=== PATIENT | female | born 1980 | race Caucasian/White ===

== ENCOUNTER 2018-05-07 08:35 | Outpatient (CLI) | payer OTHER ==
[2018-05-07 09:02] LABS: #Basophils 0.1 thou/uL (0.0-0.2); #Eosinphils 0.1 thou/uL (0.0-0.7); #Lymphocytes 2.5 thou/uL (1.20-3.40); #Monocytes 0.7 thou/uL (0.11-0.59); #Neutrophils 4.1 thou/uL (1.40-6.50); %Basophils 1.2 % (0.0-1.0); %Eosinophils 1.3 % (0.0-10.0); %Lymphocytes 33.6 % (21.0-51.0); %Neutrophils 54.9 % (42.0-75.0); Hemoglobin 13.8 g/dL (12.0-16.0); Mean Corpuscular HGB CONC 32.5 g/dL (32.0-36.0); Mean Corpuscular Hemoglobin 28.3 pg (27.0-31.0); Mean Corpuscular Volume 87.1 fL (78.0-98.0); Mean Platelet Volume 8.8 fL (7.4-10.4); Platelet Count 304 thou/uL (130-400); RBC Distribution Width 11.1 % (11.5-14.5); Red Blood Cell (RBC) Count 4.88 mill/uL (4.20-5.40); White Blood Cell (WBC) Count 7.4 thou/uL (4.8-10.8)
[2018-05-07 09:24] LABS: ALT (SGPT) 30 U/L (8-55); AST (SGOT) 17 U/L (5-34); Albumin 4.6 g/dL (3.5-5.0); Alkaline Phosphatase 77 U/L (40-150); Anion Gap 14 mmol/L (10-20); BUN (Urea Nitrogen) 7 mg/dL (7.0-18.7); Bilirubin, Total 0.2 mg/dL (0.2-1.2); Calc. Creatinine Clearance 0 mL/min (70-130); Carbon Dioxide 27 mmol/L (22-29); Chloride 101 mmol/L (98-107); Estimated GFR-MDRD 84; Globulin 3.9 g/dL (2.4-3.5); Glucose 92 mg/dL (70-105); Potassium 3.2 mmol/L (3.5-5.1); Protein, Total 8.5 g/dL (6.0-8.3); Sodium 139 mmol/L (136-145)
--- NOTE | 2018-05-07 09:43 | RAD ---
PA AND LATERAL CHEST: Indication: Chest pain with shortness of breath. FINDINGS: The lungs are clear. Cardiomediastinal silhouette is within normal limits. No pleural effusion or pne umothorax is evident. No acute osseous abnormality is noted. IMPRESSION: No acute cardiopulmonary abnormality. POS: [facility]
== END 2018-05-07 08:36 | disposition home or self-care (01) ==
LOC: SCSRAD 08:35
PROVIDERS: ATTEND Family Medicine
DX: R07.9 Chest pain, unspecified (principal); I26.99 Other pulmonary embolism without acute cor pulmonale
CPT/HCPCS: 36415; 71046; 80053; 84443; 85025; 85379

== ENCOUNTER 2018-05-07 09:32 | Emergency (ER) | payer OTHER ==
[~2018-05-07 09:32] MED LIST: Iopamidol 370 76% 100 ML VIAL ONE
--- NOTE | 2018-05-07 10:43 | CT ---
CTA OF THE THORAX UTILIZING IV CONTRAST AND 3D REFORMATTED IMAGING: Date: 05/07/18 INDICATION: Concern for pulmonary embolus. COMPARISON: None. FINDINGS: There is a large fluid and gas collection within the outer aspect of the left breast (4.6 x 5.4 cm), which may be postoperative in nature. There is some mildly prominent left axillary lymph nodes, one of the largest is measuring 8.4 mm on i mage 32 of series 6. There are some subpectoral lymph nodes measuring up to 1.0 cm on image 29 of ser ies 6. There is reticulation within fat of the superior aspect of the left axillary fossa which may b e postsurgical in nature related to an axillary node dissection. No central or segmental pulmonary embolus is evident. No pathologically enlarged lymph nodes are seen within the mediastinum, hilar, or right axillary region. No pleural effusion or pneumothorax is evid ent. No acute abnormality is seen within the upper abdomen. No acute osseous abnormality is demonstra cr. IMPRESSION: 1. No central or segmental pulmonary embolus demonstrated. 2. Large fluid and gas collection seen within the outer aspect of the left breast, which may be post operative in nature or reflective of a hematoma. Operative site abscess cannot be entirely excluded. Recommend correlation with clinical examination and patient's surgical history. 3. Reticulation involving the fat of the superior aspect of the left axillary fossa is suspicious fo r postsurgical change related to dissection. 4. Enlarged lymph nodes within the left axillary and left subpectoral region may be reactive n natur e. Continued follow-up is recommended. POS: [facility]
[2018-05-07] MEDS ORDERED: Potassium Chloride 20 MEQ TAB ONE (10:45)
== END 2018-05-07 11:03 | disposition home or self-care (01) ==
LOC: SCSER 09:32
DX: F41.9 Anxiety disorder, unspecified (principal); R00.0 Tachycardia, unspecified; E87.6 Hypokalemia; R06.00 Dyspnea, unspecified
CPT/HCPCS: 71275; 93005

== ENCOUNTER 2018-05-12 08:32 | Outpatient (CLI) | payer OTHER, SELFPAY ==
--- NOTE | 2018-05-12 11:52 | CT ---
CONTRAST ENHANCED CT OF THE CHEST CONTRAST ENHANCED CT OF THE ABDOMEN AND PELVIS: History: Malignant neoplasm of upper outer quadrant left female breast. C50.42 Technique: Contrast enhanced CT images of the chest, abdomen, and pelvis obtained. FINDINGS: Images demonstrate the lung parenchyma to be unremarkable. No definite evidence of pulmonary parenchy mal lesion is seen. Mediastinum is unremarkable. Surgical changes are seen in the lateral aspect of the left breast. There does appear to be a mildly enlarged left axillary lymph node, diameter measuring approximately 12 x 8 x 12 mm. No evidence of pleural or pericardial effusions seen. CT images of the abdomen and pelvis demonstrate the liver, spleen, gallbladder, pancreas, adrenal gla nds, and kidneys to be unremarkable. No dilated loops of bowel seen. The colon is unremarkable no definite masses or lesions seen. No significant evidence of osseous lesions seen. No evidence of periaortic lymphadenopathy seen. No evidence of pelvic lymphadenopathy or mass lesions seen. IMPRESSION: Mildly enlarged left axillary lymph node. POS: [facility]
[2018-05-12] MEDS ORDERED: Iopamidol 370 76% 100 ML VIAL ONE (13:29)
--- NOTE | 2018-05-12 15:12 | NM ---
NUCLEAR MEDICINE BONE SCAN: HISTORY: Malignant neoplasm of the upper outer quadrant left breast. COMPARISON: None. TECHNIQUE: The patient was administered 32 mCi of Technetium 99m-MDP intravenously. Whole body imaging is perfo rmed after appropriate delay. FINDINGS: Physiologic distribution of radiotracer. Uptake in both knees and shoulders as well as wrists and santiago nds due to degenerative change. There is no evidence of osseous metastasis in the axial skeleton or in the ribs. No evidence of mestasis in the pelvis. A small amount of urinary contamination is note d in the midline of the pelvis. A small amount of urinary contamination is noted in the midline of t he pelvis. IMPRESSION: No scintigraphic evidence of osseous metastasis. POS: [facility]
== END 2018-05-12 08:33 | disposition home or self-care (01) ==
LOC: CT 08:32
PROVIDERS: ATTEND Internal Medicine Hematology & Oncology
DX: C50.412 Malignant neoplasm of upper-outer quadrant of left female breast (principal); R59.0 Localized enlarged lymph nodes
CPT/HCPCS: 71260; 74177; 78306; A9503

== ENCOUNTER 2018-05-15 12:35 | Outpatient (CLI) | payer OTHER | END 2018-05-15 12:36 | disposition home or self-care (01) | LOC: ULT 12:35 | PROVIDERS: ATTEND Internal Medicine Hematology & Oncology | DX: Z51.11 Encounter for antineoplastic chemotherapy (principal); C50.412 Malignant neoplasm of upper-outer quadrant of left female breast | CPT/HCPCS: 93306 ==

== ENCOUNTER 2018-05-23 13:38 | Day surgery (SDC) | payer OTHER ==
[2018-05-23] MEDS ORDERED: Sodium Chloride 0.9% 20 ML ONE (13:44)
[2018-05-23] MEDS ORDERED: DOXORUBICIN 100 MG in Sodium Chloride 0.9% 50 ML IVPB SCH (14:00)
[2018-05-23] MEDS ORDERED: Pegfilgrastim Onpro 6 MG/0.6 ML SQ SCH (14:15)
[2018-05-23] MEDS ORDERED: SODIUM CHLORIDE 0.9% IVPB SCH (14:15)
[2018-05-23] MEDS ORDERED: Palonosetron HCl 0.25 MG in Sodium Chloride 0.9% 50 ML IVPB SCH (14:15)
[2018-05-23] MEDS ORDERED: CYCLOPHOSPHAMIDE IVPB SCH (14:15)
[2018-05-23] MEDS ORDERED: Dexamethasone 10 MG in Sodium Chloride 0.9% 50 ML IVPB SCH (14:15)
[2018-05-23 17:12] VITALS: BP 144/79; TEMP 98.5
== END 2018-05-23 18:36 | disposition home or self-care (01) ==
LOC: ONC/OP 13:38
PROVIDERS: ATTEND Internal Medicine Hematology & Oncology
DX: Z51.11 Encounter for antineoplastic chemotherapy (principal); C50.412 Malignant neoplasm of upper-outer quadrant of left female breast
CPT/HCPCS: 96367; 96375; 96377; 96413; 96417; J1100; J1453; J1642; J2469; J2505; J7050; J9000; J9070

== ENCOUNTER 2018-06-10 10:22 | Day surgery (SDC) | payer OTHER ==
[2018-06-10 10:47] VITALS: BP 136/82; TEMP 98.5
[2018-06-10] MEDS ORDERED: SODIUM CHLORIDE 0.9% IVPB SCH (11:00)
[2018-06-10] MEDS ORDERED: Pegfilgrastim Onpro 6 MG/0.6 ML SQ SCH (11:00)
[2018-06-10] MEDS ORDERED: CYCLOPHOSPHAMIDE IVPB SCH (11:00)
[2018-06-10] MEDS ORDERED: DOXORUBICIN 100 MG in Sodium Chloride 0.9% 50 ML IVPB SCH (11:00)
[2018-06-10] MEDS ORDERED: Dexamethasone 4 mg/ml Vial SLOW IVP SCH (11:15)
[2018-06-10] MEDS ORDERED: PALONOSETRON HCL 0.05 MG/ML 5 ML VIAL IVP SCH (11:15)
[2018-06-10] MEDS ORDERED: Sodium Chloride 0.9% 40 ML ONE (11:49)
== END 2018-06-10 14:52 | disposition home or self-care (01) ==
LOC: ONC/OP 10:22
PROVIDERS: ATTEND Internal Medicine Hematology & Oncology
DX: Z51.11 Encounter for antineoplastic chemotherapy (principal); C50.412 Malignant neoplasm of upper-outer quadrant of left female breast
CPT/HCPCS: 96367; 96375; 96377; 96413; 96417; J1100; J1453; J1642; J2469; J2505; J7050; J9000; J9070

== ENCOUNTER 2018-06-24 10:40 | Day surgery (SDC) | payer OTHER ==
[2018-06-24] MEDS ORDERED: Palonosetron HCl 0.25 MG in Sodium Chloride 0.9% 50 ML IVPB SCH (11:30)
[2018-06-24] MEDS ORDERED: Dexamethasone 10 MG in Sodium Chloride 0.9% 50 ML IVPB SCH (11:30)
[2018-06-24] MEDS ORDERED: Sodium Chloride 0.9% 30 ML ONE (11:46)
[2018-06-24] MEDS ORDERED: SODIUM CHLORIDE 0.9% IVPB SCH (12:00)
[2018-06-24] MEDS ORDERED: Pegfilgrastim Onpro 6 MG/0.6 ML SQ SCH (12:00)
[2018-06-24] MEDS ORDERED: DOXORUBICIN 100 MG in Sodium Chloride 0.9% 50 ML IVPB SCH (12:00)
[2018-06-24] MEDS ORDERED: CYCLOPHOSPHAMIDE IVPB SCH (12:00)
[2018-06-24 12:41] VITALS: BP 124/69; TEMP 97.7
== END 2018-06-24 15:58 | disposition home or self-care (01) ==
LOC: ONC/OP 10:40
PROVIDERS: ATTEND Internal Medicine Hematology & Oncology
DX: Z51.11 Encounter for antineoplastic chemotherapy (principal); C50.412 Malignant neoplasm of upper-outer quadrant of left female breast; D64.9 Anemia, unspecified; Z79.899 Other long term (current) drug therapy
CPT/HCPCS: 96375; 96377; 96413; 96417; J1100; J1453; J1642; J2469; J2505; J7050; J9000; J9070

== ENCOUNTER 2018-07-08 10:57 | Day surgery (SDC) | payer OTHER ==
[2018-07-08] MEDS ORDERED: Sodium Chloride 0.9% 40 ML ONE (11:10)
[2018-07-08] MEDS ORDERED: PALONOSETRON HCL 0.05 MG/ML 5 ML VIAL IVP SCH (11:15)
[2018-07-08] MEDS ORDERED: Dexamethasone 10 MG/ML VIAL SLOW IVP SCH (11:15)
[2018-07-08] MEDS ORDERED: SODIUM CHLORIDE 0.9% IVPB SCH (11:15)
[2018-07-08] MEDS ORDERED: DOXORUBICIN 100 MG in Sodium Chloride 0.9% 50 ML IVPB SCH (11:15)
[2018-07-08] MEDS ORDERED: Pegfilgrastim Onpro 6 MG/0.6 ML SQ SCH (11:15)
[2018-07-08] MEDS ORDERED: CYCLOPHOSPHAMIDE IVPB SCH (11:15)
== END 2018-07-08 15:22 | disposition home or self-care (01) ==
LOC: ONC/OP 10:57
PROVIDERS: ATTEND Internal Medicine Hematology & Oncology
DX: Z51.11 Encounter for antineoplastic chemotherapy (principal); C50.412 Malignant neoplasm of upper-outer quadrant of left female breast
CPT/HCPCS: 96367; 96375; 96377; 96413; 96417; J1100; J1453; J1642; J2469; J2505; J7050; J9000; J9070

== ENCOUNTER 2018-07-29 11:56 | Day surgery (SDC) | payer SELFPAY ==
[2018-07-29] MEDS ORDERED: Ondansetron HCl/PF 10 MG, Dexamethasone 10 MG in Sodium Chloride 0.9% 50 ML IVPB SCH (12:30)
[2018-07-29] MEDS ORDERED: PACLITAXEL IVPB SCH (13:00)
[2018-07-29] MEDS ORDERED: SODIUM CHLORIDE 0.9% IVPB SCH (13:00)
[2018-07-29 13:13] VITALS: BP 149/72; TEMP 98.6
[2018-07-29] MEDS ORDERED: Sodium Chloride 0.9% 40 ML ONE (14:42)
== END 2018-07-29 15:51 | disposition home or self-care (01) ==
LOC: ONC/OP 11:56
PROVIDERS: ATTEND Internal Medicine Hematology & Oncology
DX: Z51.11 Encounter for antineoplastic chemotherapy (principal); C50.412 Malignant neoplasm of upper-outer quadrant of left female breast
CPT/HCPCS: 96375; 96413; J1100; J1642; J2405; J7050; J9267

== ENCOUNTER 2018-08-05 11:18 | Day surgery (SDC) | payer SELFPAY ==
[2018-08-05] MEDS ORDERED: Sodium Chloride 0.9% 30 ML ONE (12:44)
[2018-08-05] MEDS ORDERED: Ondansetron PF 4 MG/2 ML Vial SLOW IVP SCH (13:15)
[2018-08-05] MEDS ORDERED: Dexamethasone 10 MG/ML VIAL SLOW IVP SCH (13:15)
[2018-08-05] MEDS ORDERED: SODIUM CHLORIDE 0.9% IVPB SCH (13:30)
[2018-08-05] MEDS ORDERED: PACLITAXEL IVPB SCH (13:30)
[2018-08-05 13:33] VITALS: BP 136/92; TEMP 98.7
== END 2018-08-05 14:54 | disposition home or self-care (01) ==
LOC: ONC/OP 11:18
PROVIDERS: ATTEND Internal Medicine Hematology & Oncology
DX: Z51.11 Encounter for antineoplastic chemotherapy (principal); C50.412 Malignant neoplasm of upper-outer quadrant of left female breast
CPT/HCPCS: 96375; 96413; J1100; J1642; J2405; J7050; J9267

== ENCOUNTER 2018-08-12 10:17 | Day surgery (SDC) | payer SELFPAY ==
[2018-08-12] MEDS ORDERED: SODIUM CHLORIDE 0.9% IVPB SCH (10:45)
[2018-08-12] MEDS ORDERED: Ondansetron PF 4 MG/2 ML Vial SLOW IVP SCH (10:45)
[2018-08-12] MEDS ORDERED: PACLITAXEL IVPB SCH (10:45)
[2018-08-12] MEDS ORDERED: Dexamethasone 10 MG/ML VIAL SLOW IVP SCH (10:45)
[2018-08-12 11:03] VITALS: BP 120/73; TEMP 98.2
[2018-08-12] MEDS ORDERED: Sodium Chloride 0.9% 30 ML ONE (11:36)
== END 2018-08-12 14:08 | disposition home or self-care (01) ==
LOC: ONC/OP 10:17
PROVIDERS: ATTEND Internal Medicine Hematology & Oncology
DX: Z51.11 Encounter for antineoplastic chemotherapy (principal); C50.412 Malignant neoplasm of upper-outer quadrant of left female breast
CPT/HCPCS: 96375; 96413; J1100; J1642; J2405; J7050; J9267

== ENCOUNTER 2018-08-19 10:33 | Day surgery (SDC) | payer MEDICAID, SELFPAY ==
[2018-08-19] MEDS ORDERED: Sodium Chloride 0.9% 20 ML ONE (10:42)
[2018-08-19] MEDS ORDERED: SODIUM CHLORIDE 0.9% IVPB SCH (10:45)
[2018-08-19] MEDS ORDERED: PACLITAXEL IVPB SCH (10:45)
[2018-08-19] MEDS ORDERED: Ondansetron PF 4 MG/2 ML Vial SLOW IVP SCH (10:45)
[2018-08-19] MEDS ORDERED: Dexamethasone 4 mg/ml Vial SLOW IVP SCH (10:45)
[2018-08-19 13:01] VITALS: BP 123/74; TEMP 98
== END 2018-08-19 18:34 | disposition home or self-care (01) ==
LOC: ONC/OP 10:33
PROVIDERS: ATTEND Internal Medicine Hematology & Oncology
DX: Z51.11 Encounter for antineoplastic chemotherapy (principal); C50.412 Malignant neoplasm of upper-outer quadrant of left female breast; C77.3 Secondary and unspecified malignant neoplasm of axilla and upper limb lymph nodes; Z17.0 Estrogen receptor positive status [ER+]
CPT/HCPCS: 96375; 96413; J1100; J1642; J2405; J7050; J9267

== ENCOUNTER 2018-08-26 11:43 | Day surgery (SDC) | payer MEDICAID ==
[2018-08-26] MEDS ORDERED: Sodium Chloride 0.9% 30 ML ONE (12:00)
[2018-08-26] MEDS ORDERED: Ondansetron PF 4 MG/2 ML Vial SLOW IVP SCH (12:15)
[2018-08-26] MEDS ORDERED: PACLITAXEL IVPB SCH (12:15)
[2018-08-26] MEDS ORDERED: SODIUM CHLORIDE 0.9% IVPB SCH (12:15)
[2018-08-26] MEDS ORDERED: Dexamethasone 4 mg/ml Vial SLOW IVP SCH (12:15)
== END 2018-08-26 13:56 | disposition home or self-care (01) ==
LOC: ONC/OP 11:43
PROVIDERS: ATTEND Internal Medicine Hematology & Oncology
DX: Z51.11 Encounter for antineoplastic chemotherapy (principal); C50.412 Malignant neoplasm of upper-outer quadrant of left female breast; Z79.899 Other long term (current) drug therapy
CPT/HCPCS: 36415; 80053; 82248; 83615; 84100; 84550; 96375; 96413; J1100; J2405; J7050; J9267

== ENCOUNTER 2018-09-02 09:54 | Day surgery (SDC) | payer MEDICAID ==
[~2018-09-02 09:54] MED LIST changes: +Dexamethasone 4 mg/ml Vial SLOW IVP SCH; +Dexamethasone Sod Phosphate 4 MG, Ondansetron 2MG/ML MDV 10 MG in Sodium Chloride 0.9% ... IVPB SCH; -Iopamidol 370 76% 100 ML VIAL ONE; +Ondansetron PF 4 MG/2 ML Vial SLOW IVP SCH; +PACLITAXEL IVPB SCH; +SODIUM CHLORIDE 0.9% IVPB SCH
[2018-09-02] MEDS ORDERED: Sodium Chloride 0.9% 20 ML ONE (10:02)
[2018-09-02 10:56] VITALS: BP 119/70; TEMP 98.5
== END 2018-09-02 12:35 | disposition home or self-care (01) ==
LOC: ONC/OP 09:54
PROVIDERS: ATTEND Internal Medicine Hematology & Oncology
DX: Z51.11 Encounter for antineoplastic chemotherapy (principal); C50.412 Malignant neoplasm of upper-outer quadrant of left female breast; Z98.890 Other specified postprocedural states
CPT/HCPCS: 96375; 96413; J1100; J1642; J2405; J7050; J9267

== ENCOUNTER 2018-09-09 00:03 | Day surgery (SDC) | payer MEDICAID ==
[2018-09-09] MEDS ORDERED: PACLITAXEL IVPB SCH (03:30)
[2018-09-09] MEDS ORDERED: SODIUM CHLORIDE 0.9% IVPB SCH (03:30)
[2018-09-09] MEDS ORDERED: Ondansetron PF 4 MG/2 ML Vial SLOW IVP SCH (03:30)
[2018-09-09] MEDS ORDERED: Dexamethasone 4 mg/ml Vial SLOW IVP SCH (03:30)
[2018-09-09] MEDS ORDERED: Sodium Chloride 0.9% 20 ML ONE (10:52)
== END 2018-09-09 12:42 | disposition home or self-care (01) ==
LOC: ONC/OP 00:03
PROVIDERS: ATTEND Internal Medicine Hematology & Oncology
DX: Z51.11 Encounter for antineoplastic chemotherapy (principal); C50.412 Malignant neoplasm of upper-outer quadrant of left female breast; Z98.890 Other specified postprocedural states
CPT/HCPCS: 96375; 96413; J1100; J1642; J2405; J7050; J9267

== ENCOUNTER 2018-09-16 10:31 | Day surgery (SDC) | payer MEDICAID ==
[~2018-09-16 10:31] MED LIST changes: +DEXAMETHASONE SOD PHOSPHATE IVP SCH; +Dexamethasone 4 MG in Sodium Chloride 0.9% 50 ML IVPB SCH; -Dexamethasone 4 mg/ml Vial SLOW IVP SCH; -Dexamethasone Sod Phosphate 4 MG, Ondansetron 2MG/ML MDV 10 MG in Sodium Chloride 0.9% ... IVPB SCH; +ONDANSETRON IVP SCH; +Ondansetron 2MG/ML MDV 10 MG in Sodium Chloride 0.9% 50 ML IVP SCH; -Ondansetron PF 4 MG/2 ML Vial SLOW IVP SCH; +[UNRECOGNIZED DRUG - OTHER] IVP SCH
[2018-09-16] MEDS ORDERED: Sodium Chloride 0.9% 20 ML ONE (10:34)
[2018-09-16 11:05] VITALS: BP 105/66; TEMP 98.8
== END 2018-09-16 13:06 | disposition home or self-care (01) ==
LOC: ONC/OP 10:31
PROVIDERS: ATTEND Internal Medicine Hematology & Oncology
DX: Z51.11 Encounter for antineoplastic chemotherapy (principal); C50.412 Malignant neoplasm of upper-outer quadrant of left female breast; C77.3 Secondary and unspecified malignant neoplasm of axilla and upper limb lymph nodes; Z17.0 Estrogen receptor positive status [ER+]; Z79.82 Long term (current) use of aspirin; Z98.890 Other specified postprocedural states; Z79.899 Other long term (current) drug therapy; Z79.810 Long term (current) use of selective estrogen receptor modulators (SERMs)
CPT/HCPCS: 96375; 96413; J1100; J1642; J2405; J7050; J9267

== ENCOUNTER 2018-09-23 11:42 | Day surgery (SDC) | payer OTHER ==
[~2018-09-23 11:42] MED LIST changes: -Ondansetron 2MG/ML MDV 10 MG in Sodium Chloride 0.9% 50 ML IVP SCH
[2018-09-23] MEDS ORDERED: Sodium Chloride 0.9% 20 ML ONE (12:20)
== END 2018-09-23 13:55 | disposition home or self-care (01) ==
LOC: ONC/OP 11:42
PROVIDERS: ATTEND Internal Medicine Hematology & Oncology
DX: Z51.11 Encounter for antineoplastic chemotherapy (principal); C50.412 Malignant neoplasm of upper-outer quadrant of left female breast; C77.3 Secondary and unspecified malignant neoplasm of axilla and upper limb lymph nodes; Z17.0 Estrogen receptor positive status [ER+]
CPT/HCPCS: 36415; 80053; 82248; 83615; 84100; 84550; 96375; 96413; J1100; J1642; J2405; J7050; J9267

== ENCOUNTER 2018-09-30 10:30 | Day surgery (SDC) | payer OTHER ==
[~2018-09-30 10:30] MED LIST changes: -DEXAMETHASONE SOD PHOSPHATE IVP SCH; -ONDANSETRON IVP SCH; +Ondansetron 2MG/ML MDV 10 MG in Sodium Chloride 0.9% 50 ML IVP SCH; +Ondansetron 2MG/ML MDV 10 MG, Dexamethasone 4 MG in Sodium Chloride 0.9% 50 ML IVP SCH; -[UNRECOGNIZED DRUG - OTHER] IVP SCH
[2018-09-30] MEDS ORDERED: Sodium Chloride 0.9% 30 ML ONE (10:36)
[2018-09-30 11:02] VITALS: BP 127/67; TEMP 98.4
== END 2018-09-30 12:43 | disposition home or self-care (01) ==
LOC: ONC/OP 10:30
PROVIDERS: ATTEND Internal Medicine Hematology & Oncology
DX: Z51.11 Encounter for antineoplastic chemotherapy (principal); C50.412 Malignant neoplasm of upper-outer quadrant of left female breast; Z17.0 Estrogen receptor positive status [ER+]
CPT/HCPCS: 96375; 96413; J1100; J1642; J2405; J7050; J9267

== ENCOUNTER 2018-10-07 10:09 | Day surgery (SDC) | payer OTHER ==
[~2018-10-07 10:09] MED LIST changes: -Dexamethasone 4 MG in Sodium Chloride 0.9% 50 ML IVPB SCH; -Ondansetron 2MG/ML MDV 10 MG in Sodium Chloride 0.9% 50 ML IVP SCH
[2018-10-07] MEDS ORDERED: Sodium Chloride 0.9% 30 ML ONE (10:40)
== END 2018-10-07 12:00 | disposition home or self-care (01) ==
LOC: ONC/OP 10:09
PROVIDERS: ATTEND Internal Medicine Hematology & Oncology
DX: Z51.11 Encounter for antineoplastic chemotherapy (principal); C50.412 Malignant neoplasm of upper-outer quadrant of left female breast; Z98.890 Other specified postprocedural states
CPT/HCPCS: 96375; 96413; J1100; J1642; J2405; J7050; J9267

== ENCOUNTER 2018-10-14 10:51 | Day surgery (SDC) | payer OTHER ==
[~2018-10-14 10:51] MED LIST changes: -Ondansetron 2MG/ML MDV 10 MG, Dexamethasone 4 MG in Sodium Chloride 0.9% 50 ML IVP SCH; +Ondansetron 2MG/ML MDV 10 MG, Dexamethasone 4 MG in Sodium Chloride 0.9% 50 ML IVPB SCH
[2018-10-14 13:06] VITALS: BP 132/80; TEMP 98.5
[2018-10-14] MEDS ORDERED: Sodium Chloride 0.9% 20 ML ONE (13:25)
== END 2018-10-14 14:54 | disposition home or self-care (01) ==
LOC: ONC/OP 10:51
PROVIDERS: ATTEND Internal Medicine Hematology & Oncology
DX: Z51.11 Encounter for antineoplastic chemotherapy (principal); C50.412 Malignant neoplasm of upper-outer quadrant of left female breast
CPT/HCPCS: 36415; 85025; 96375; 96413; J1100; J1642; J2405; J7050; J9267

== ENCOUNTER 2018-12-10 10:59 | Day surgery (SDC) | payer OTHER ==
[~2018-12-10 10:59] MED LIST changes: +Goserelin Acetate 3.6 MG KIT SC SCH; -Ondansetron 2MG/ML MDV 10 MG, Dexamethasone 4 MG in Sodium Chloride 0.9% 50 ML IVPB SCH; -PACLITAXEL IVPB SCH; -SODIUM CHLORIDE 0.9% IVPB SCH
[2018-12-10 12:11] VITALS: BP 137/78; TEMP 98.4
== END 2018-12-10 12:11 | disposition home or self-care (01) ==
LOC: ONC/OP 10:59
PROVIDERS: ATTEND Internal Medicine Hematology & Oncology
DX: Z51.11 Encounter for antineoplastic chemotherapy (principal); C50.412 Malignant neoplasm of upper-outer quadrant of left female breast; Z17.0 Estrogen receptor positive status [ER+]
CPT/HCPCS: 96402; J9202

== ENCOUNTER 2019-01-08 13:01 | Day surgery (SDC) | payer MEDICAID ==
[2019-01-08 13:07] VITALS: BP 134/88; TEMP 98
[2019-01-08] MEDS ORDERED: Goserelin Acetate 3.6 MG KIT SC SCH (13:15)
== END 2019-01-08 13:16 | disposition home or self-care (01) ==
LOC: ONC/OP 13:01
PROVIDERS: ATTEND Internal Medicine Hematology & Oncology
DX: Z51.11 Encounter for antineoplastic chemotherapy (principal); C50.412 Malignant neoplasm of upper-outer quadrant of left female breast; Z17.0 Estrogen receptor positive status [ER+]
CPT/HCPCS: 77412; 77417; 96402; J9202

== ENCOUNTER 2019-02-04 11:44 | Day surgery (SDC) | payer OTHER ==
[2019-02-04] MEDS ORDERED: Goserelin Acetate 3.6 MG KIT SC SCH (12:45)
== END 2019-02-04 15:50 | disposition home or self-care (01) ==
LOC: ONC/OP 11:44
PROVIDERS: ATTEND Internal Medicine Hematology & Oncology
DX: Z51.11 Encounter for antineoplastic chemotherapy (principal); C50.412 Malignant neoplasm of upper-outer quadrant of left female breast
CPT/HCPCS: 96402; J9202

== ENCOUNTER 2019-03-05 12:29 | Day surgery (SDC) | payer OTHER | END 2019-03-05 13:37 | disposition home or self-care (01) | LOC: ONC/OP 12:29 | PROVIDERS: ATTEND Internal Medicine Hematology & Oncology | DX: Z51.11 Encounter for antineoplastic chemotherapy (principal); C50.412 Malignant neoplasm of upper-outer quadrant of left female breast | CPT/HCPCS: 36415; 80053; 82306; 84443; 96401; J9202 ==

== ENCOUNTER 2019-04-02 10:59 | Day surgery (SDC) | payer OTHER ==
[2019-04-02 11:24] VITALS: BP 141/84; TEMP 98.2
== END 2019-04-02 11:28 | disposition home or self-care (01) ==
LOC: ONC/OP 10:59
PROVIDERS: ATTEND Internal Medicine Hematology & Oncology
DX: Z51.11 Encounter for antineoplastic chemotherapy (principal); C50.412 Malignant neoplasm of upper-outer quadrant of left female breast
CPT/HCPCS: 96402; J9202

== ENCOUNTER 2019-04-30 11:06 | Day surgery (SDC) | payer OTHER ==
[2019-04-30 11:25] VITALS: BP 131/70; TEMP 97.8
== END 2019-04-30 11:27 | disposition home or self-care (01) ==
LOC: ONC/OP 11:06
PROVIDERS: ATTEND Internal Medicine Hematology & Oncology
DX: Z51.11 Encounter for antineoplastic chemotherapy (principal); C50.412 Malignant neoplasm of upper-outer quadrant of left female breast
CPT/HCPCS: 96402; J9202

== ENCOUNTER 2019-08-19 08:02 | Outpatient (CLI) | payer OTHER ==
--- NOTE | 2019-08-19 13:25 | CT ---
EXAM: CT of the chest with contrast CT of the abdomen and pelvis with contrast HISTORY: Malignant neoplasm of the upper outer quadrant of the left female breast COMPARISON: 05/12/2018 TECHNIQUE: 1. Multiple contiguous axial images were obtained in a CT the chest with contrast. Coronal and sagitt al reformats were performed. 2. Multiple contiguous axial images were obtained and a CT of the abdomen and pelvis with contrast. O ral contrast was administered. Coronal and sagittal reformats were performed. FINDINGS: CT CHEST: HEART: Normal in size without focal cardiac abnormality MEDIASTINUM: No hilar or mediastinal lymphadenopathy. LUNGS: No focal infiltrates, nodules, or masses. PLEURAL SPACE: No pneumothorax or pleural effusion. CHEST WALL SOFT TISSUES: Bilateral tissue expanders in the chest wall. CT ABDOMEN/PELVIS: ABDOMEN: LIVER: within normal limits. BILE DUCTS: Normal caliber. GALLBLADDER: No calcified gallstones. Normal caliber wall. PANCREAS: within normal limits. SPLEEN: within normal limits. ADRENALS: within normal limits. KIDNEYS: within normal limits. PELVIS: REPRODUCTIVE ORGANS: No pelvic masses. URETERS: within normal limits. BLADDER: within normal limits. PERITONEUM: No ascites or free air, no fluid collection. BOWEL: Normal caliber. MESENTERY AND RETROPERITONEUM: No enlarged mesenteric or retroperitoneal lymph nodes. VESSELS: Normal. ABDOMINAL WALL: within normal limits. OSSEOUS STRUCTURES: Normal. IMPRESSION: No evidence of recurrent or metastatic disease.
== END 2019-08-19 08:03 | disposition home or self-care (01) ==
LOC: SCSCT 08:02
PROVIDERS: ATTEND Internal Medicine Hematology & Oncology
DX: C50.412 Malignant neoplasm of upper-outer quadrant of left female breast (principal)
CPT/HCPCS: 71260; 74177

== ENCOUNTER 2019-12-18 10:15 | Outpatient (CLI) | payer OTHER ==
[2019-12-18] MEDS ORDERED: Iopamidol 370 76% 100 ML VIAL ONE (12:43)
--- NOTE | 2019-12-18 15:55 | CT ---
CT CHEST WITH IV CONTRAST CT ABDOMEN WITH IV CONTRAST CT PELVIS WITH IV CONTRAST: 12/18/19 HISTORY: Malignant neoplasm of the upper outer quadrant of the left female breast. Adverse effect of antigonad otropics, antiestrogens, antiandrogens, not elsewhere classified. COMPARISON: 08/19/19. FINDINGS: No evidence of mediastinal, hilar, axillary, abdominopelvic mass or lymphadenopathy is seen. Bilateral breast expanders are again noted. No pleural or pericardial effusions are seen. No pneumoth oraces, focal areas of consolidation, or lung nodules/masses are identified. The liver, spleen, pancreas, adrenal glands and right kidney are normal. A small cyst in the left kid jamey is stable. No calcified gallstones are seen. No free air or free fluid is seen in the abdomen or pelvis. A retroaortic left renal vein is again noted. The uterus and ovaries are present. No osteolyt ic or osteoblastic lesions are noted. IMPRESSION: No evidence of metastatic disease. POS: [facility]
== END 2019-12-18 10:16 | disposition home or self-care (01) ==
LOC: CT 10:15
PROVIDERS: ATTEND Internal Medicine Hematology & Oncology
DX: C50.412 Malignant neoplasm of upper-outer quadrant of left female breast (principal); T38.6X5A Adverse effect of antigonadotrophins, antiestrogens, antiandrogens, not elsewhere classified, initial encounter
CPT/HCPCS: 71260; 74177; Q9967

== ENCOUNTER 2020-08-01 09:05 | Outpatient (CLI) | payer OTHER ==
[2020-08-01 10:08] LABS: BHCG - Serum Negative (NEGATIVE); Pregs Control Background? CLEAR/WHITE (CLR/WHITE); Pregs Control Bar Appear? YES (CONTROL BAR)
--- NOTE | 2020-08-01 11:10 | CT ---
CT OF THE CHEST WITH CONTRAST CT OF THE ABDOMEN AND PELVIS WITH CONTRAST: COMPARISON: 12/18/2019, 08/19/2019. HISTORY: Malignant neoplasm of the upper outer quadrant of the left female breast. TECHNIQUE: 1. Multiple contiguous axial images were obtained in a CT of the chest with contrast. Sagittal and coronal reformats were performed. 2. Multiple contiguous axial images were obtained in a CT of the abdomen and pelvis with contrast. P.o. contrast was administered. Sagittal and coronal reformats were performed. FINDINGS: CT CHEST: The patient has undergone interval autologous breast reconstruction with cloth washer back tender flap cloth washer back tender f laps. Multiple jd are seen deep to both of these autologous free flaps. The heart is normal in size without focal cardiac abnormality. No hilar or mediastinal lymphadenopat hy are seen. No suspicious pulmonary nodules are seen. No pneumothorax or pleural effusion are seen. The bones of the thorax are unremarkable. CT ABDOMEN/PELVIS: The liver, gallbladder, kidneys, adrenal glands, spleen, and pancreas are unremarkable. No free air, free fluid, or stranding changes are seen in the abdomen or pelvis. The large and small bowel are unremarkable. The reproductive organs are unremarkable. No abdominal or pelvic lymphadenopathy are seen. Surgical jd are seen near the inferior rectus abdominus muscles from prior free flap harvest sit es. The bones are unremarkable. IMPRESSION: 1. No evidence of intrathoracic metastatic disease. 2. No evidence of intraabdominal/pelvic metastatic disease. POS: [facility]
[2020-08-01] MEDS ORDERED: Iopamidol 370 76% 100 ML VIAL ONE (13:32)
--- NOTE | 2020-08-01 13:37 | NM ---
Radionucleotide bone scan HISTORY: Breast cancer. Upper outer quadrant left breast. Restaging. COMPARISON: 05/12/2018. FINDINGS: Mild heterogeneous uptake at the right patellofemoral joint. Appearance of degenerative pelon nges. Mild uptake at the ethmoid air cells may be related to mucosal disease. Urinary bladder partially obscures the pubic symphysis. No suspicious areas of radiotracer uptake are apparent. IMPRESSION : No evidence of osseous metastasis.
== END 2020-08-01 09:06 | disposition home or self-care (01) ==
LOC: CT 09:05
PROVIDERS: ATTEND Internal Medicine Hematology & Oncology
DX: Z32.00 Encounter for pregnancy test, result unknown (principal); C50.412 Malignant neoplasm of upper-outer quadrant of left female breast; T38.6X5A Adverse effect of antigonadotrophins, antiestrogens, antiandrogens, not elsewhere classified, initial encounter
CPT/HCPCS: 36415; 71260; 74177; 78306; 84703; A9503

== ENCOUNTER 2021-08-15 09:13 | Outpatient (CLI) | payer OTHER | END 2021-08-15 09:14 | disposition home or self-care (01) | LOC: CT 09:13 | PROVIDERS: ATTEND Internal Medicine Hematology & Oncology | DX: C50.412 Malignant neoplasm of upper-outer quadrant of left female breast (principal); K76.0 Fatty (change of) liver, not elsewhere classified | CPT/HCPCS: 71260; 74177; 78306; A9503 ==

== ENCOUNTER 2022-02-13 08:33 | Outpatient (CLI) | payer OTHER ==
[2022-02-13] MEDS ORDERED: Iopamidol 370 76% 100 ML VIAL ONE (08:44)
== END 2022-02-13 08:34 | disposition home or self-care (01) ==
LOC: CT 08:33
PROVIDERS: ATTEND Internal Medicine Hematology & Oncology
DX: C50.412 Malignant neoplasm of upper-outer quadrant of left female breast (principal); K76.0 Fatty (change of) liver, not elsewhere classified
CPT/HCPCS: 71260; 74177; 78306; A9503; Q9967

== ENCOUNTER 2022-07-11 08:45 | Outpatient (CLI) | payer OTHER | END 2022-07-11 08:46 | disposition home or self-care (01) | LOC: CT 08:45 | PROVIDERS: ATTEND Internal Medicine Hematology & Oncology | DX: C50.412 Malignant neoplasm of upper-outer quadrant of left female breast (principal); T38.6X5A Adverse effect of antigonadotrophins, antiestrogens, antiandrogens, not elsewhere classified, initial encounter | CPT/HCPCS: 71260; 74177; 78306 ==

== ENCOUNTER 2023-08-13 09:35 | Outpatient (CLI) | payer OTHER ==
[~2023-08-13 09:35] MED LIST changes: -Goserelin Acetate 3.6 MG KIT SC SCH; +Iopamidol 370 76% 100 ML VIAL ONE
== END 2023-08-13 09:36 | disposition home or self-care (01) ==
LOC: CT 09:35
PROVIDERS: ATTEND Internal Medicine Hematology & Oncology
DX: C50.919 Malignant neoplasm of unspecified site of unspecified female breast (principal); K76.0 Fatty (change of) liver, not elsewhere classified
CPT/HCPCS: 71260; 74177; 78306; A9503

== ENCOUNTER 2023-09-16 09:23 | Outpatient (CLI) | payer OTHER | END 2023-09-16 09:24 | disposition home or self-care (01) | LOC: BICMRI 09:23 | PROVIDERS: ATTEND Surgery | DX: Z08 Encounter for follow-up examination after completed treatment for malignant neoplasm (principal); Z85.3 Personal history of malignant neoplasm of breast | CPT/HCPCS: A9577; C8908 ==

== ENCOUNTER 2024-06-22 08:55 | Outpatient (CLI) | payer OTHER | END 2024-06-22 08:56 | disposition home or self-care (01) | LOC: NM 08:55 | PROVIDERS: ATTEND Internal Medicine Hematology & Oncology | DX: C50.412 Malignant neoplasm of upper-outer quadrant of left female breast (principal); T38.6X5A Adverse effect of antigonadotrophins, antiestrogens, antiandrogens, not elsewhere classified, initial encounter; D70.8 Other neutropenia; R93.7 Abnormal findings on diagnostic imaging of other parts of musculoskeletal system; M89.9 Disorder of bone, unspecified; K76.0 Fatty (change of) liver, not elsewhere classified; Z85.9 Personal history of malignant neoplasm, unspecified | CPT/HCPCS: 71260; 74177; 78306; A9503 ==

== ENCOUNTER 2024-09-03 08:46 | Outpatient (CLI) | payer OTHER | END 2024-09-03 08:47 | disposition home or self-care (01) | LOC: CT 08:46 | PROVIDERS: ATTEND Internal Medicine Hematology & Oncology | DX: C50.412 Malignant neoplasm of upper-outer quadrant of left female breast (principal); T38.6X5A Adverse effect of antigonadotrophins, antiestrogens, antiandrogens, not elsewhere classified, initial encounter; D70.8 Other neutropenia; M89.9 Disorder of bone, unspecified; R16.0 Hepatomegaly, not elsewhere classified; K76.0 Fatty (change of) liver, not elsewhere classified | CPT/HCPCS: 71260; 74177; 78306; A9503 ==

== ENCOUNTER 2025-03-18 07:37 | Outpatient (CLI) | payer OTHER | END 2025-03-18 07:38 | disposition home or self-care (01) | LOC: CT 07:37 | PROVIDERS: ATTEND Internal Medicine Hematology & Oncology | DX: C50.412 Malignant neoplasm of upper-outer quadrant of left female breast (principal); T38.6X5A Adverse effect of antigonadotrophins, antiestrogens, antiandrogens, not elsewhere classified, initial encounter; D70.8 Other neutropenia; M85.88 Other specified disorders of bone density and structure, other site; Z79.818 Long term (current) use of other agents affecting estrogen receptors and estrogen levels | CPT/HCPCS: 71260; 74177; 78306; A9503 ==